=== PATIENT | female | born 1970 | race Caucasian/White ===

== ENCOUNTER 2023-03-11 02:47 | Inpatient (IN) | payer MEDICAID ==
[~2023-03-11] VITALS: Ht 165.1 cm; Wt 43.2 kg
[2023-03-11] MEDS ORDERED: ONDANSETRON ODT 4 MG TAB PO ONE (03:15)
[2023-03-11] MEDS ORDERED: HYDROcodone-ACET 10/325MG TAB PO ONE (03:15)
[2023-03-11 03:37] LABS: Urine Bacteria FEW /hpf (None Seen); Urine Blood Negative /uL (Negative); Urine Clarity Clear (Clear); Urine Protein, UAD Negative (Negative); Urine Specific Gravity 1.003 (1.001-1.035); Urine Urobilinogen Normal (Negative); Urine WBC 1 /hpf (0 - 5)
[2023-03-11 03:39] LABS: Urine Color Straw (Yellow)
[2023-03-11 03:40] LABS: Hemoglobin 10.9 g/dL (12.2-16.2); Mean Corpuscular Volume 80.2 fL (80.0-100.0)
[2023-03-11 03:42] LABS: Hematocrit 32.8 % (36.0-46.0); Mean Corpuscular Hemoglobin 26.7 pg (28.0-32.0); Mean Corpuscular Hgb Conc. 33.3 g/dL (32.0-36.0); Red Blood Cells 4.08 10^6/uL (4.0-5.20); Red Cell Distribution Width 17.8 % (11.8-14.3)
[2023-03-11 03:47] LABS: Band Neutrophils % (manual) 0; Basophils % (manual) 0 (0.0-2.0); Blast Cells 0; Metamyelocytes % 0; Myelocytes % 0; Promyelocytes % 0; Reactive Lymphocytes 0
[2023-03-11 03:57] LABS: Albumin 3.4 g/dL (3.4-5.0); Potassium 3.1 mmol/L (3.5-5.1)
[2023-03-11 04:01] LABS: BUN/Creatinine Ratio 11.8 (10.0-20.0); Bilirubin, Total 0.4 mg/dL (0.2-1.0); Total Protein 8.7 g/dL (6.4-8.2)
[2023-03-11 04:13] LABS: Eosinophils % (manual) 2 (0-7); Lymphocytes % (manual) 23 (10.0-50.0); Monocytes % (manual) 19 (0-12); Platelet Estimate Decreased
[2023-03-11] MEDS ORDERED: OXYCODONE W/ ACETAMINOPHEN 5/325MG TABLET PO ONE (04:30)
[2023-03-11 04:45] VITALS: PULSE 60; RESP 15; O2SAT 96
[2023-03-11] MEDS ORDERED: MAGNESIUM SULFATE 1GM/100ML 100 ML IV ONE (05:30)
[2023-03-11] MEDS ORDERED: cefTRIAXone 1GM/50ML D5W 50 ML IV ONE (06:00)
[2023-03-11] MEDS ORDERED: LACTATED RINGER'S 2,000 ML IV ONE (06:00)
[2023-03-11] MEDS ORDERED: IBUPROFEN 600 MG TAB PO PRN (07:30)
[2023-03-11] MEDS ORDERED: HYDROcodone-ACET 5/325MG TAB PO PRN (07:30)
[2023-03-11] MEDS ORDERED: MORPHINE SULFATE INJ 2 MG/ml SYRG IV PRN (07:30)
[2023-03-11] MEDS ORDERED: DOCUSATE SOD 100 MG CAP PO PRN (07:30)
[2023-03-11] MEDS ORDERED: POTASSIUM CHL 20 Meq TABLET PO ONE ×2 (07:30→10:30)
[2023-03-11] MEDS ORDERED: SODIUM CHLORIDE 0.9% 1,000 ML IV SCH (07:30)
[2023-03-11] MEDS ORDERED: NITROGLYCERIN 0.4 MG SL TAB SL PRN (07:30)
[2023-03-11 08:27] LABS: Hemoglobin 10.2 g/dL (12.2-16.2)
[2023-03-11 08:31] LABS: Hematocrit 30.8 % (36.0-46.0); Mean Corpuscular Hemoglobin 26.4 pg (28.0-32.0); Mean Corpuscular Hgb Conc. 32.9 g/dL (32.0-36.0); Mean Corpuscular Volume 80.2 fL (80.0-100.0); Red Blood Cells 3.84 10^6/uL (4.0-5.20); Red Cell Distribution Width 17.8 % (11.8-14.3)
[2023-03-11 08:46] LABS: Albumin 2.9 g/dL (3.4-5.0); Calcium 7.9 mg/dL (8.5-10.1); Potassium 3.2 mmol/L (3.5-5.1); White Blood Cell 1.9 10^3/uL (4.4-10.8)
[2023-03-11 08:47] LABS: Basophils % (manual) 0 (0.0-2.0); Blast Cells 0; Metamyelocytes % 0; Myelocytes % 0; Promyelocytes % 0; Reactive Lymphocytes 0
[2023-03-11 08:48] LABS: BUN/Creatinine Ratio 12.3 (10.0-20.0); Bilirubin, Total 0.3 mg/dL (0.2-1.0); Total Protein 7.8 g/dL (6.4-8.2)
[2023-03-11 09:34] LABS: Band Neutrophils % (manual) 8; Eosinophils % (manual) 2 (0-7); Lymphocytes % (manual) 21 (10.0-50.0); Monocytes % (manual) 19 (0-12)
[2023-03-11 09:36] LABS: Platelet Estimate Decreased
[2023-03-11] MEDS ORDERED: MAGNESIUM OXIDE 400 MG TAB PO ONE (10:30)
[2023-03-11] MEDS: levoFLOXacin 500MG 100 ML IV SCH (10:52)
[2023-03-11] MEDS: ONDANSETRON HCL 4 MG/2 ML VIAL IV PRN ×2 (10:52→17:41)
[2023-03-11] MEDS: HYDROmorphone HCL 2 MG/ML VL/or syr IV PRN (12:52)
[2023-03-11 17:30] LABS: Basophils # (auto) 0 10 ^3/uL (0-0.2); Eosinophils # (auto) 0 10 ^3/uL (0-0.8); Monocytes # (auto) 0.4 10 ^3/uL (0-1.3); Nucleated Red Blood Cells % 0.2 %; White Blood Cell 2.8 10^3/uL (4.4-10.8)
[2023-03-11 17:32] LABS: Basophils % (auto) 1.2 % (0.0-2.0); Eosinophils % (auto) 0.8 % (0.0-7.0); Hematocrit 31.3 % (36.0-46.0); Hemoglobin 10.2 g/dL (12.2-16.2); Lymphocytes # (auto) 0.3 10 ^3/uL (0.4-5.4); Lymphocytes % (auto) 11.9 % (10.0-50.0); Mean Corpuscular Hemoglobin 26.1 pg (28.0-32.0); Mean Corpuscular Hgb Conc. 32.7 g/dL (32.0-36.0); Monocytes % (auto) 13.3 % (0.0-12.0); Neutrophils % (auto) 72.8 % (37.0-80.0); Red Blood Cells 3.92 10^6/uL (4.0-5.20); Red Cell Distribution Width 17.8 % (11.8-14.3)
[2023-03-11] MEDS: PROMETHAZINE HCL 25 MG/ML 1ML IV PRN (17:38)
[2023-03-11 17:44] VITALS: PULSE 68; RESP 18; O2SAT 96
[2023-03-11 17:48] LABS: INR 1.08 (0.9-1.15); Partial Thromboplastin Time 30.3 SEC (24.5-34.5); Prothrombin Time 11.3 sec (9.3-11.8)
[2023-03-11 17:51] LABS: BUN/Creatinine Ratio 10.3 (10.0-20.0); Calcium 8.4 mg/dL (8.5-10.1)
[2023-03-11 17:54] LABS: Bilirubin, Total 0.3 mg/dL (0.2-1.0); Total Protein 8.1 g/dL (6.4-8.2)
[2023-03-12] MEDS: PROMETHAZINE HCL 25 MG/ML 1ML IV PRN (00:40)
[2023-03-12] MEDS: ONDANSETRON HCL 4 MG/2 ML VIAL IV PRN (02:13)
[2023-03-12] MEDS: HYDROmorphone HCL 2 MG/ML VL/or syr IV PRN (02:13)
[2023-03-12 04:54] LABS: Mean Corpuscular Hemoglobin 26.6 pg (28.0-32.0); Mean Corpuscular Hgb Conc. 33.2 g/dL (32.0-36.0); White Blood Cell 2.7 10^3/uL (4.4-10.8)
[2023-03-12 04:56] LABS: Hematocrit 29.8 % (36.0-46.0); Hemoglobin 9.9 g/dL (12.2-16.2); Mean Corpuscular Volume 80.3 fL (80.0-100.0); Red Blood Cells 3.72 10^6/uL (4.0-5.20); Red Cell Distribution Width 17.8 % (11.8-14.3)
[2023-03-12 04:59] LABS: Basophils % (manual) 0 (0.0-2.0); Blast Cells 0; Metamyelocytes % 0; Myelocytes % 0; Promyelocytes % 0; Reactive Lymphocytes 0
[2023-03-12 05:12] LABS: Albumin 2.8 g/dL (3.4-5.0); Calcium 8.6 mg/dL (8.5-10.1); Magnesium 2.2 mg/dL (1.6-2.6); Potassium 4.1 mmol/L (3.5-5.1)
[2023-03-12 05:14] LABS: BUN/Creatinine Ratio 8.5 (10.0-20.0)
[2023-03-12 05:15] LABS: Band Neutrophils % (manual) 3; Eosinophils % (manual) 1 (0-7); Lymphocytes % (manual) 23 (10.0-50.0); Monocytes % (manual) 14 (0-12)
[2023-03-12 05:16] LABS: Large Platelets FEW; Platelet Estimate Decrea
[2023-03-12 05:17] LABS: Bilirubin, Total 0.2 mg/dL (0.2-1.0); Total Protein 7.5 g/dL (6.4-8.2)
[2023-03-12 07:35] VITALS: PULSE 83; RESP 12; TEMP 98.6; O2SAT 94
[2023-03-12] MEDS: levoFLOXacin 500MG 100 ML IV SCH (12:01)
[2023-03-12 13:00] VITALS: BP 131/85; PULSE 76; RESP 12; O2SAT 99
== END 2023-03-12 14:00 | disposition home or self-care (01) | DRG 382 ==
LOC: ER 02:47 → TELE 07:32
PROVIDERS: ADMIT Internal Medicine; ATTEND Internal Medicine
DX: C50.912 Malignant neoplasm of unspecified site of left female breast (principal); E43 Unspecified severe protein-calorie malnutrition; C79.51 Secondary malignant neoplasm of bone; C50.911 Malignant neoplasm of unspecified site of right female breast; D72.819 Decreased white blood cell count, unspecified; E87.6 Hypokalemia; I10 Essential (primary) hypertension; R79.89 Other specified abnormal findings of blood chemistry; Z85.3 Personal history of malignant neoplasm of breast; Z88.0 Allergy status to penicillin; Z68.1 Body mass index [BMI] 19.9 or less, adult
CPT/HCPCS: 36415; 71250; 80053; 81001; 83735; 84443; 84484; 85007; 85025; 85027; 85610; 85730; 96365; 96367; G0378; J0696; J1956; J2405; Q0162

== ENCOUNTER 2023-04-21 23:32 | Emergency (ER) | payer MEDICAID ==
[~2023-04-21] VITALS: Ht 162.6 cm; Wt 45.9 kg
[2023-04-21] MEDS ORDERED: IBUPROFEN 600 MG TAB PO ONE (23:45)
[2023-04-22 00:11] LABS: Hemoglobin 9.1 g/dL (12.2-16.2); Mean Corpuscular Volume 75.7 fL (80.0-100.0)
[2023-04-22 00:13] LABS: Hematocrit 26.9 % (36.0-46.0); Mean Corpuscular Hemoglobin 25.7 pg (28.0-32.0); Mean Corpuscular Hgb Conc. 33.9 g/dL (32.0-36.0); Red Blood Cells 3.55 10^6/uL (4.0-5.20); White Blood Cell 3.6 10^3/uL (4.4-10.8)
[2023-04-22 00:14] LABS: Band Neutrophils % (manual) 0; Basophils % (manual) 0 (0.0-2.0); Blast Cells 0; Metamyelocytes % 0; Myelocytes % 0; Promyelocytes % 0; Reactive Lymphocytes 0
[2023-04-22 00:29] LABS: Alanine Aminotransferase 24 U/L (7-40); Albumin 4.1 g/dL (3.2-4.8); Alkaline Phosphatase 55 U/L (46-116); Anion Gap 4 (5-15); Aspartate Aminotransferase 75 U/L (13-40); BUN/Creatinine Ratio 10.8 (10.0-20.0); Bilirubin, Total 0.4 mg/dL (0.2-1.0); Blood Urea Nitrogen 9 mg/dL (9-23); Calcium 9.1 mg/dL (8.7-10.4); Carbon Dioxide 30 mmol/L (20-30); Chloride 98 mmol/L (98-107); Glucose 93 mg/dL (74-106); Lipase 71 U/L (12-53); Potassium 3.6 mmol/L (3.5-5.1); Sodium 132 mmol/L (136-145); Total Protein 8.4 g/dL (5.7-8.2)
[2023-04-22 01:35] LABS: Eosinophils % (manual) 3 (0-7); Lymphocytes % (manual) 15 (10.0-50.0); Monocytes % (manual) 14 (0-12)
[2023-04-22 01:36] LABS: Platelet Estimate Adequate
[2023-04-22 03:35] VITALS: BP 139/86; PULSE 88; RESP 18; TEMP 98.6; O2SAT 100
[2023-04-22 05:11] LABS: Urine Blood Normal /uL (Negative); Urine Color Yellow (Yellow); Urine Protein, UAD Trace (Negative); Urine Specific Gravity 1.015 (1.001-1.035); Urine Urobilinogen Normal (Negative)
[2023-04-22 05:12] LABS: Urine Bacteria Rare /hpf (None Seen); Urine Mucus Few (None Seen)
== END 2023-04-22 04:57 | disposition left against medical advice (07) ==
LOC: ER 23:32
DX: N64.4 Mastodynia (principal); R50.9 Fever, unspecified; Z79.899 Other long term (current) drug therapy; Z53.21 Procedure and treatment not carried out due to patient leaving prior to being seen by health care provider
CPT/HCPCS: 36415; 71250; 74176; 80053; 81001; 81025; 83690; 85007; 85027